=== PATIENT | female | born 1995 | race Two or more races ===

== ENCOUNTER 2016-10-22 00:11 | Emergency (ER) | payer OTHER ==
[2016-10-22] MEDS ORDERED: OLANZapine 10 MG/2 ML VIAL IM ONE (00:24)
--- NOTE | 2016-10-22 00:26 | EDPHY ---
H & P Time Seen by Provider: 10/22/16 00:14 HPI/ROS: Chief Complaint: Head injury, fall HPI: 21-year-old female states she has been drinking alcohol this evening and attending parties at the surgery. Patient states that she was in bed the top bunk when she rolled and fell out of bed, striking the back of her head on a dresser. Patient is unable to tell me she had a loss of consciousness. She is tearful and has been acting intoxicated per EMS. Patient states she has been drinking alcohol this evening. No nausea or vomiting. ROS: 10 point Review of Systems is negative except as noted in the HPI. PMH: Denies Medications: Denies Allergies: Denies Social History: No smoking, occasional alcohol, no recreational drug use Family History: non-contributory Physical Exam: Gen: Awake, Alert, Airway Intact HEENT: Head: Occipital laceration without step-offs Eyes: PERRLA, EOMI Ears: No hemotympanum Nose: No epistaxis Mouth: Normal dentition, Airway patent Face: No deformity Neck: non-tender, no stepoff, Full ROM without pain Chest: non-tender, lungs CTA Heart: normal heart tones Abd: soft, non-tender, atraumatic Pelvis: non-tender, stable to AP and Lateral compression Back: atraumatic, no midline tenderness Ext: atramatic, full ROM Skin: no rash Neuro: CN II-XII intact, Strength 5/5 in all extremities, sensation intact in all extremities Constitutional: Initial Vital Signs Temperature (C) 36.7 C 10/22/16 00:11 Heart Rate 147 H 10/22/16 00:11 Respiratory Rate 18 10/22/16 00:11 Blood Pressure 145/89 H 10/22/16 00:11 O2 Sat (%) 98 10/22/16 00:11 O2 Delivery Mode Room Air Allergies/Adverse Reactions: No Known Allergies Allergy (Verified 10/22/16 00:21) Home Medications: Medication Instructions Recorded Adderall 10 mg Tablet 10/22/16 Medical Decision Making - Diagnostics Imaging: CT head and cervical spine are negative per Dr. Shore Procedures: Procedure: Laceration repair. Verbal consent was obtained from the patient. The 2 cm laceration on the occiput was anesthetized in the usual fashion. The wound was irrigated, draped and explored to its base with a gloved finger. There were no deep structures involved. The wound was repaired with 5 jia. The wound repair was uncomplicated. The procedure was performed by myself. ED Course/Re-evaluation: Patient is ambulating unassisted to the bathroom. Head and neck CT are negative. Laceration has been repaired. Will discharge with follow up with [facility] for staple removal. Departure - Departure Disposition: Home, Routine, Self-Care Clinical Impression: Scalp laceration, Head injury, Alcohol intoxication Condition: Good Instructions: Staple Care (ED), Laceration (ED), Alcohol Intoxication (ED) Additional Instructions: Jia need to be removed in 7 days, you can follow up with [facility] for this. Return for increasing headache, nausea, vomiting, fevers, chills, discharge from wound, bleeding, or any other concerns. Please do not binge drink alcohol. Referrals: Patient,NotPresent [Primary Care Provider] - As per Instructions [facility] [Outside] - As per Instructions
[2016-11-03 13:49] VITALS: BP 120/82; PULSE 85; RESP 18; TEMP 97.9; O2SAT 95
== END 2016-10-22 02:19 | disposition home or self-care (01) ==
LOC: EDBD
PROC: 0HQ0XZZ Repair Scalp Skin, External Approach (ICD-10-PCS; principal; 2016-10-22)
DX: S01.01XA Laceration without foreign body of scalp, initial encounter (principal); F10.129 Alcohol abuse with intoxication, unspecified; W06.XXXA Fall from bed, initial encounter; Y93.89 Activity, other specified